=== PATIENT | female | born 1985 | race Hispanic/Latino ===

== ENCOUNTER 2020-05-14 16:20 | Emergency (ER) | payer SELFPAY ==
[2020-05-14 17:14] LABS: HCG,QUAL RESULT NEGATIVE (NEGATIVE)
[2020-05-14 17:17] LABS: AMPHET/METH SCREEN,URINE NEGATIVE (NEGATIVE); BARBITURATE SCREEN, URINE NEGATIVE (NEGATIVE); BENZODIAZEPINES SCREEN,URINE NEGATIVE (NEGATIVE); CANNABINOID SCREEN,URINE NEGATIVE (NEGATIVE); COCAINE SCREEN,URINE NEGATIVE (NEGATIVE); OPIATE SCREEN,URINE NEGATIVE (NEGATIVE); PHENCYCLIDINE SCREEN,URINE NEGATIVE (NEGATIVE)
[2020-05-14 17:31] LABS: BASOPHILS % (AUTO) 0.5 % (0.0-5.0); EOSINOPHILS % (AUTO) 2.1 % (0.0-8.0); HEMATOCRIT 42.5 % (36-48); MEAN CORPUSCULAR HEMOGLOBIN 28.5 pg (27.0-33.0); MEAN CORPUSCULAR HGB CONC 32.9 g/dL (32.0-36.0); MEAN CORPUSCULAR VOLUME 86.4 fL (79-99); MONOCYTES % (AUTO) 5.8 % (3.0-13.0); NEUTROPHILS % (AUTO) 59.2 % (40.0-77.0); PLATELET COUNT (AUTO) 278 K/uL (130-400); RED BLOOD CELL COUNT(AUTO) 4.92 MIL/uL (4.00-5.50); RED CELL DISTRIBUTION WIDTH 12.5 % (11.0-15.5); WHITE BLOOD COUNT (AUTO) 10.9 K/uL (4.8-10.8)
[2020-05-14 17:34] LABS: CREATININE 0.9 mg/dL (0.5-1.5); POTASSIUM 3.9 mmol/L (3.5-5.1)
[2020-05-14 17:39] LABS: ALBUMIN 3.5 g/dL (3.5-5.0); BILIRUBIN,TOTAL 0.2 mg/dL (0.2-1.0)
== END 2020-05-14 21:35 | disposition home or self-care (01) ==
LOC: EDH 16:20
DX: R00.2 Palpitations (principal); E01.0 Iodine-deficiency related diffuse (endemic) goiter; Z72.0 Tobacco use
CPT/HCPCS: 36415; 71045; 80053; 80305; 81025; 82550; 84443; 84484; 85025; 93005

== ENCOUNTER 2022-02-07 08:14 | Emergency (ER) | payer OTHER ==
[~2022-02-07] VITALS: Ht 162.6 cm; Wt 98.9 kg
[2022-02-07 08:32] LABS: BASOPHILS % (AUTO) 0.6 % (0.0-5.0); EOSINOPHILS % (AUTO) 2.4 % (0.0-8.0); HEMATOCRIT 41.4 % (36-48); LYMPHOCYTES % (AUTO) 45.7 % (21.0-51.0); MEAN CORPUSCULAR HEMOGLOBIN 29.5 pg (27.0-33.0); MEAN CORPUSCULAR HGB CONC 33.1 g/dL (32.0-36.0); MONOCYTES % (AUTO) 7.3 % (3.0-13.0); NEUTROPHILS % (AUTO) 43.8 % (40.0-77.0); PLATELET COUNT (AUTO) 228 K/uL (130-400); RED BLOOD CELL COUNT(AUTO) 4.65 MIL/uL (4.00-5.50); RED CELL DISTRIBUTION WIDTH 12.7 % (11.0-15.5); WHITE BLOOD COUNT (AUTO) 8.6 K/uL (4.8-10.8)
[2022-02-07 08:45] LABS: APPEARANCE,URINE CLEAR (CLEAR); BILIRUBIN,URINE NEGATIVE (NEGATIVE); COLOR,URINE LIGHT-YELLOW (YELLOW); GLUCOSE, URINE (UA) NEGATIVE (NEGATIVE); KETONES,URINE NEGATIVE (NEGATIVE); LEUKOCYTE ESTERASE ,URINE NEGATIVE Leu/uL (NEGATIVE); NITRATE,URINE NEGATIVE (NEGATIVE); OCCULT BLOOD,URINE NEGATIVE (NEGATIVE); PROTEIN,URINE NEGATIVE (NEGATIVE); UROBILINOGEN,URINE 0.2 mg/dL (0.2-1.0)
[2022-02-07 08:49] LABS: HCG,QUALITATIVE URINE NEGATIVE (NEGATIVE)
[2022-02-07 08:50] LABS: CREATININE 0.7 mg/dL (0.5-1.5); POTASSIUM 3.7 mmol/L (3.5-5.1)
[2022-02-07 08:54] LABS: ALBUMIN 3.5 g/dL (3.5-5.0); TOTAL PROTEIN, SERUM 7.5 g/dL (6.0-8.3)
[2022-02-07] MEDS ORDERED: ONDANSETRON 4MG INJ IVP ONE (09:00)
[2022-02-07] MEDS ORDERED: KETOROLAC 30MG VIAL (30MG/ML) IVP ONE (09:00)
[2022-02-07] MEDS ORDERED: IOHEXOL 350 MG/ML 100ML INFUS..BTL IV ONE (13:04)
[2022-02-07] MEDS ORDERED: L. A1CAP13 PO (14:27)
[2022-02-07] MEDS ORDERED: FAMO-136 PO (14:27)
[2022-02-07] MEDS ORDERED: DICY10 PO (14:27)
[2022-02-07] MEDS ORDERED: ONDA4TAB10 PO (14:27)
[2022-02-07 14:56] VITALS: BP 110/75
== END 2022-02-07 14:55 | disposition home or self-care (01) ==
LOC: EDH 08:14
DX: R10.9 Unspecified abdominal pain (principal); R11.2 Nausea with vomiting, unspecified; R07.89 Other chest pain; M25.511 Pain in right shoulder
CPT/HCPCS: 99285; 74177; 96374; 76705; 96375; 82150; 84443; 80053; 83690; 85025; 81003; 81025; 36415; J2405; J1885; Q9967

== ENCOUNTER 2022-07-21 18:35 | Emergency (ER) | payer OTHER ==
[~2022-07-21] VITALS: Ht 162.6 cm; Wt 6.2 kg
[~2022-07-21 18:35] MED LIST: DICY10 PO; FAMO-136 PO; L. A1CAP13 PO; ONDA4TAB10 PO
[2022-07-21 19:45] LABS: BASOPHILS % (AUTO) 0.4 % (0.0-5.0); EOSINOPHILS % (AUTO) 2.3 % (0.0-8.0); HEMATOCRIT 44.2 % (36-48); LYMPHOCYTES % (AUTO) 24.1 % (21.0-51.0); MEAN CORPUSCULAR HEMOGLOBIN 29.4 pg (27.0-33.0); MEAN CORPUSCULAR HGB CONC 32.8 g/dL (32.0-36.0); MEAN CORPUSCULAR VOLUME 89.5 fL (79-99); MONOCYTES % (AUTO) 8.7 % (3.0-13.0); NEUTROPHILS % (AUTO) 64.1 % (40.0-77.0); PLATELET COUNT (AUTO) 277 K/uL (130-400); RED BLOOD CELL COUNT(AUTO) 4.94 MIL/uL (4.00-5.50); RED CELL DISTRIBUTION WIDTH 12.4 % (11.0-15.5); WHITE BLOOD COUNT (AUTO) 10.8 K/uL (4.8-10.8)
[2022-07-21 19:53] LABS: CREATININE 0.8 mg/dL (0.5-1.5); POTASSIUM 3.7 mmol/L (3.5-5.1)
[2022-07-21 20:03] LABS: ALBUMIN 3.5 g/dL (3.5-5.0)
[2022-07-21 20:19] LABS: APPEARANCE,URINE CLEAR (CLEAR); BILIRUBIN,URINE NEGATIVE (NEGATIVE); COLOR,URINE LIGHT-YELLOW (YELLOW); GLUCOSE, URINE (UA) NEGATIVE (NEGATIVE); KETONES,URINE NEGATIVE (NEGATIVE); LEUKOCYTE ESTERASE ,URINE NEGATIVE Leu/uL (NEGATIVE); NITRATE,URINE NEGATIVE (NEGATIVE); PH,URINE 5.5 (5.0-8.0); PROTEIN,URINE NEGATIVE (NEGATIVE)
[2022-07-21 20:24] LABS: HCG,QUALITATIVE URINE NEGATIVE (NEGATIVE)
[2022-07-21 20:41] LABS: BACTERIA,URINE RARE /HPF (None Seen); MUCUS,URINE RARE LPF (None Seen); SQUAMOUS EPITHELIAL CELL,UR RARE /HPF (0-2); YEAST,URINE BUDDING RARE /HPF (None Seen)
[2022-07-21] MEDS ORDERED: ONDANSETRON 4MG INJ IVP ONE (21:00)
[2022-07-21] MEDS ORDERED: FAMOTIDINE 20MG VIAL IV ONE (21:00)
[2022-07-21] MEDS ORDERED: KETOROLAC 15MG/ML VIAL (15MG/ML) IV ONE (21:00)
[2022-07-21] MEDS: MORPHINE 2 MG SYG IVP ONE ×2 (21:00→22:52)
[2022-07-21] MEDS ORDERED: 0.9%NACL 1000ML 1,000 ML IV ONE (21:00)
[2022-07-21] MEDS ORDERED: NAPR500T6 PO (22:04)
[2022-07-21] MEDS ORDERED: OMEP20TA20 PO (22:04)
[2022-07-21] MEDS ORDERED: ONDA4TAB10 PO (22:04)
[2022-07-21 22:51] VITALS: BP 125/73
== END 2022-07-21 22:53 | disposition home or self-care (01) ==
LOC: EDH 18:35
DX: K82.4 Cholesterolosis of gallbladder (principal); R10.11 Right upper quadrant pain; E03.9 Hypothyroidism, unspecified; Z79.899 Other long term (current) drug therapy; Z98.890 Other specified postprocedural states
CPT/HCPCS: 99285; 96374; 76705; 71045; 96361; 96375; 84484; 80053; 85025; 81001; 81025; 36415; 93005; J3490; J7030; J2405; J1885

== ENCOUNTER 2023-09-19 19:51 | Emergency (ER) | payer OTHER ==
[~2023-09-19] VITALS: Ht 167.6 cm; Wt 99.8 kg
[~2023-09-19 19:51] MED LIST changes: +NAPR500T6 PO; +OMEP20TA20 PO
[2023-09-19] MEDS: NAPROXEN 500 MG TABLET PO ONE (20:02)
[2023-09-19 20:09] VITALS: BP 114/59; PULSE 67; RESP 16; O2SAT 98
[2023-09-19] MEDS ORDERED: NAPR375T6 PO (20:19)
== END 2023-09-19 20:34 | disposition home or self-care (01) ==
LOC: EDH 19:51
DX: K42.9 Umbilical hernia without obstruction or gangrene (principal); E03.9 Hypothyroidism, unspecified; Z79.899 Other long term (current) drug therapy
CPT/HCPCS: 76705

== ENCOUNTER 2024-02-17 15:27 | Emergency (ER) | payer BC ==
[~2024-02-17] VITALS: Ht 162.6 cm; Wt 99.8 kg
[~2024-02-17 15:27] MED LIST changes: +NAPR-1505 PO; +NAPR-1506 PO; -NAPR500T6 PO; +ONDA-243 PO; -ONDA4TAB10 PO
[2024-02-17 16:00] LABS: BASOPHILS # (AUTO) 0.04 K/uL (0.00-0.20); BASOPHILS % (AUTO) 0.4 % (0.0-5.0); EOSINOPHILS # (AUTO) 0.21 K/uL (0.00-0.70); EOSINOPHILS % (AUTO) 2.3 % (0.0-8.0); IMMATURE GRANULOCYTE ABSOLUTE 0.05 K/uL (0-1); LYMPHOCYTES # (AUTO) 2.8 K/uL (1.0-4.8); LYMPHOCYTES % (AUTO) 30.6 % (21.0-51.0); MEAN CORPUSCULAR HEMOGLOBIN 28.9 pg (27.0-33.0); MEAN CORPUSCULAR HGB CONC 32.6 g/dL (32.0-36.0); MEAN CORPUSCULAR VOLUME 88.6 fL (79-99); MONOCYTES # (AUTO) 0.5 K/uL (0.1-1.0); NEUTROPHILS # (AUTO) 5.4 K/uL (1.8-7.7); NEUTROPHILS % (AUTO) 60.1 % (40.0-77.0); PLATELET COUNT (AUTO) 231 K/uL (130-400); RED BLOOD CELL COUNT(AUTO) 4.74 MIL/uL (4.00-5.50); RED CELL DISTRIBUTION WIDTH 12.8 % (11.0-15.5)
[2024-02-17 16:09] LABS: APPEARANCE,URINE CLEAR (CLEAR); BILIRUBIN,URINE NEGATIVE (NEGATIVE); COLOR,URINE LIGHT-YELLOW (YELLOW); GLUCOSE, URINE (UA) NEGATIVE (NEGATIVE); KETONES,URINE NEGATIVE (NEGATIVE); LEUKOCYTE ESTERASE ,URINE NEGATIVE Leu/uL (NEGATIVE); NITRATE,URINE NEGATIVE (NEGATIVE); OCCULT BLOOD,URINE NEGATIVE (NEGATIVE); PH,URINE 5.5 (5.0-8.0); PROTEIN,URINE NEGATIVE (NEGATIVE); UROBILINOGEN,URINE 0.2 mg/dL (0.2-1.0)
[2024-02-17 16:15] LABS: ADD UA MICROSCOPIC YES
[2024-02-17 16:16] LABS: BACTERIA,URINE RARE /HPF (None Seen); MUCUS,URINE RARE LPF (None Seen); RBC,URINE 0-1 /HPF (0-1); SQUAMOUS EPITHELIAL CELL,UR RARE /HPF (0-2); WBC,URINE 0-1 /HPF (0-1)
[2024-02-17 16:16] LABS: CREATININE 0.7 mg/dL (0.5-1.0); POTASSIUM 3.3 mmol/L (3.5-5.1)
[2024-02-17 16:30] LABS: B-TYPE NATRIURETIC PEPTIDE 25 pg/mL (0-100)
[2024-02-17] MEDS: 0.9%NACL 1000ML 1,000 ML IV SCH (18:31)
[2024-02-17] MEDS: PoTASSium BIcarbonate/CIT AC 25 MEQ TABLET.EFF PO ONE (21:20)
[2024-02-17 21:26] VITALS: BP 122/71; PULSE 80; RESP 18; TEMP 98.2; O2SAT 99
== END 2024-02-17 21:36 | disposition home or self-care (01) ==
LOC: EDH 15:27
DX: F41.9 Anxiety disorder, unspecified (principal); E86.0 Dehydration; E87.6 Hypokalemia; Z79.899 Other long term (current) drug therapy; Z98.890 Other specified postprocedural states
CPT/HCPCS: 99284; 96360; 71045; 82550; 84484; 80048; 83880; 85025; 81001; 81025; 36415; 93005; J7030

== ENCOUNTER 2025-01-08 22:28 | Emergency (ER) | payer SELFPAY ==
[~2025-01-08] VITALS: Ht 167.6 cm; Wt 104.3 kg
[2025-01-08 22:49] LABS: IMMATURE GRANULOCYTE ABSOLUTE 0.06 K/uL (0-1); NUCLEATED RED BLOOD CELLS 0.0 % (0.0-0.19); PLATELET COUNT (AUTO) 247 K/uL (130-400); RED BLOOD CELL COUNT(AUTO) 4.61 MIL/uL (4.00-5.50); RED CELL DISTRIBUTION WIDTH 12.8 % (11.0-15.5); WHITE BLOOD COUNT (AUTO) 13.6 K/uL (4.8-10.8)
[2025-01-08 23:00] LABS: CREATININE 0.6 mg/dL (0.5-1.0); GLOMERULAR FILTR. RATE CALC 116.0 mL/min (>90); GLUCOSE,RANDOM 102.0 mg/dL (70-105); SODIUM SERUM 138.0 mmol/L (136-145); UREA NITROGEN, BLOOD 13.0 mg/dL (7-18)
[2025-01-08 23:05] LABS: CREATINE KINASE, TOTAL 56.0 U/L (21-232)
[2025-01-08 23:07] VITALS: TEMP 98.2
--- NOTE | 2025-01-08 23:36 | ERN ---
ED Note History of Present Illness Stated Complaint: HEADACHE, EPIGASTRIC / CP Chief Complaint: Multiple Complaints Time Seen by MD: 23:29 Dictation: This is a 39-year-old female who presented to the emergency room complaining of epigastric pain and lower chest pain with radiation to the left chest. She stated that it was a stabbing kind of pain associated with some nausea. She also reported a headache all this started about 2 hours prior to the presentation. Patient denied any blurred vision diplopia facial asymmetry dysarthria motor weakness or seizure activity. No fever chills. She does give a history of gallbladder problems in the past Temperature 97.1 pulse 84 respirations 18 blood pressure 132/82 with a pulse oximetry of 96% on room air Chronic medical problems include thyroid disease, hernia repair and gallbladder issues. Allergies: Coded Allergies: No Known Allergies (Unverified Allergy, Unknown, 02/07/22) Home Meds Active Scripts Naproxen (Naproxen) 375 Mg Tablet., 375 MG PO BID for 7 Days, #14 TAB Prov:EMMIE GAONA MD 09/19/23 Omeprazole (Omeprazole) 20 Mg Tablet., 20 MG PO DAILY, #30 TAB Prov:FITTINGFREDERICP 07/21/22 Ondansetron (Ondansetron Odt) 4 Mg Tab.rapdis, 4 MG PO TID, #10 TAB Prov:FITTINGFREDERICP 07/21/22 Naproxen (Naproxen) 500 Mg Tablet., 500 MG PO BIDPC, #14 TAB Prov:FITTINGFREDERICP 07/21/22 Ondansetron (Ondansetron Odt) 4 Mg Tab.rapdis, 4 MG PO TID PRN for NAUSEA, #15 TAB 0 Refills Prov:HANNAH FRANCISCO MD 02/07/22 L. Acidophilus/L. Rhamnosus (Probiotic 15 Billion Cell Cap) 1 Each Capsule, 1 EACH PO DAILY, #30 CAP 0 Refills Prov:HANNAH FRANCISCO MD 02/07/22 Famotidine (Pepcid) 20 Mg Tablet, 20 MG PO BID, #30 TAB 0 Refills Prov:HANNAH FRANCISCO MD 02/07/22 Dicyclomine HCl (Bentyl) 10 Mg Cap, 10 MG PO QID PRN for PAIN, #15 CAP 0 Refills Prov:HANNAH FRANCISCO MD 02/07/22 Past Medical History Past Medical History: No Pertinent History, Hyperthyroid Additional Past Medical Hx: THYROID Surgical History: Other Surgical History Other: HERNIA REPAIR 1998 Family History: Negative Social History: Smokers, ETOH LMP: Nov 28, 2024 RN Note Reviewed/Agreed w/PFSH: Yes Review of System Dictation Constitutional: Negative for fever,chills, and weight loss Eyes: Negative for injury, pain,redness, and discharge ENT: Negative for injury,pain or swelling Cardiovascular: Positive for chest pain, palpitations, and edema Respiratory: Negative for shortness of breath, cough, and wheezing, Abdomen/GI: Positive for epigastric abdominal pain, nausea, vomiting, diarrhea, and constipation Back: Negative for injury and pain : Negative for injury, bleeding and discharge MS/Extremity: Negative for injury and deformity Skin: Negative for rash, and discoloration Neuro: Negative for headache, weakness, numbness, tingling, and seizure Psych: Negative for suicide ideation, homicidal ideation, and hallucinations Initial Vital Sign VS Vital Signs Date Time Temp Pulse Resp B/P (MAP) Pulse Ox O2 Delivery O2 Flow Rate FiO2 01/08/25 22:30 97.2 84 18 132/82 96 Room Air 01/08/25 23:07 0 21 Physical Exam Dictation General: awake, alert, NAD morbidly obese female Head/Face: Normocephalic, atraumatic Eyes: PERRL, EOMI, vision at baseline ENT: oral cavity clear, TMs clear, no signs of infection Neck: Trachea midline, supple, no nuchal rigidity Cardiovascular: RRR, normal S1/S2, No MRGs, no JVD mild tenderness in the lower chest wall area Respiratory: CTAB, no respiratory distress, No rales or wheezes Abdomen: Soft, non-tender, non-distended, normal bowel sounds, no guarding or rebound. Skin: Warm, dry, normal turgor, no rash MS/Extremity: Pulses equal, no cyanosis, neurovascular intact, FROM Neuro: COAx4, GCS 15, strength 5/5, CN 2-12 intact, normal cerebellar exam, normal gait, Psych: Normal behavior, mood, and affect normal Extremities-trace edema without any palpable cords, Homans sign is negative Results (Laboratory/Radiology) Laboratory/Radiology Laboratory Tests Test 01/08/25 22:43 01/08/25 23:49 White Blood Count 13.6 K/uL (4.8-10.8) H Red Blood Count 4.61 MIL/uL (4.00-5.50) Hemoglobin 14.0 g/dL (12.0-16.0) Hematocrit 41.0 % (36-48) Mean Corpuscular Volume 88.9 fL (79-99) Mean Corpuscular Hemoglobin 30.4 pg (27.0-33.0) Mean Corpuscular Hemoglobin Concent 34.1 g/dL (32.0-36.0) Red Cell Distribution Width 12.8 % (11.0-15.5) Platelet Count 247 K/uL (130-400) Mean Platelet Volume 10.4 fL (7.5-10.5) Immature Granulocyte % (Auto) 0.4 % (0-1) Neutrophils (%) (Auto) 65.8 % (40.0-77.0) Lymphocytes (%) (Auto) 25.4 % (21.0-51.0) Monocytes (%) (Auto) 6.5 % (3.0-13.0) Eosinophils (%) (Auto) 1.5 % (0.0-8.0) Basophils (%) (Auto) 0.4 % (0.0-5.0) Neutrophils # (Auto) 9.0 K/uL (1.8-7.7) H Lymphocytes # (Auto) 3.5 K/uL (1.0-4.8) Monocytes # (Auto) 0.9 K/uL (0.1-1.0) Eosinophils # (Auto) 0.21 K/uL (0.00-0.70) Basophils # (Auto) 0.05 K/uL (0.00-0.20) Absolute Immature Granulocyte (auto 0.06 K/uL (0-1) Nucleated Red Blood Cells 0.0 % (0.0-0.19) Sodium Level 138 mmol/L (136-145) Potassium Level 3.5 mmol/L (3.5-5.1) Chloride Level 105 mmol/L (101-111) Carbon Dioxide Level 28 mmol/L (21-32) Blood Urea Nitrogen 13 mg/dL (7-18) Creatinine 0.6 mg/dL (0.5-1.0) Glomerular Filtration Rate Calc 116 mL/min (>90) Random Glucose 102 mg/dL (70-105) Total Calcium 8.6 mg/dL (8.5-10.1) Total Creatine Kinase 56 U/L (21-232) # Troponin I High Sensitivity < 4 ng/L (4-50) L Urine Color LIGHT-YELLOW (YELLOW) Urine Appearance CLEAR (CLEAR) Urine pH 8.0 (5.0-8.0) Urine Specific [place] 1.023 (1.001-1.031) Urine Protein NEGATIVE mg/dL (NEGATIVE) Urine Glucose (UA) NEGATIVE mg/dL (NEGATIVE) Urine Ketones NEGATIVE mg/dL (NEGATIVE) Urine Occult Blood NEGATIVE (NEGATIVE) Urine Nitrate NEGATIVE (NEGATIVE) Urine Bilirubin NEGATIVE mg/dL (NEGATIVE) Urine Urobilinogen 2.0 mg/dL (0.2-1.0) H Urine Leukocyte Esterase NEGATIVE Susan/uL Urine RBC 0-1 /HPF (0-1) Urine WBC 0-1 /HPF (0-1) Urine Squamous Epithelial Cells RARE /HPF (0-2) Urine Bacteria None /HPF (None Seen) Urine HCG, Qualitative NEGATIVE (NEGATIVE) Labs Reviewed?: Yes ED Course ED Course Orders Procedure Category Date Status Time Vital Signs Per CPOE 01/08/25 Transmitted Routine 22:30 Chest 1vw RAD 01/08/25 Resulted 22:30 12 Lead Ekg Tracing- EKG 01/08/25 Logged Technical 22:30 Oxygen By Nc/Pulse Ox CPOE 01/08/25 Transmitted 22:30 Maintain Iv CPOE 01/08/25 Transmitted 22:30 Iv Insertion CPOE 01/08/25 Transmitted 22:30 Cardiac Monitoring CPOE 01/08/25 Transmitted 22:30 Pulse Oximetry With CPOE 01/08/25 Transmitted Vs And Prn 22:30 Cbc With Differential LAB 01/08/25 Complete 22:30 Activity: Br W/Brp CPOE 01/08/25 Transmitted With Assist 22:30 Creatine Kinase, Total LAB 01/08/25 Complete 22:30 Troponin I High LAB 01/08/25 Complete Sensitivity 22:30 Urinalysis Profile LAB 01/08/25 Complete 22:30 Basic Metabolic Panel LAB 01/08/25 Complete 22:30 ,Urine Test LAB 01/08/25 Complete 22:31 Ketorolac PHA 01/09/25 Complete Tromethamine 30mg/Ml 00:30 Current Medications Medications (Trade) Dose Ordered Sig/Mickey Route PRN Reason Start Time Stop Time Status Last Admin Dose Admin Ketorolac Tromethamine (toRADol) 30 mg ONCE ONCE IM 01/09/25 00:30 01/09/25 00:31 DC 01/09/25 00:25 Vital Signs Date Time Temp Pulse Resp B/P (MAP) Pulse Ox O2 Delivery O2 Flow Rate FiO2 01/09/25 00:37 77 24 117/87 100 Room Air* 0 21 01/08/25 23:07 98.2 83 12 124/80 100 Room Air* 0 21 01/08/25 22:30 97.2 84 18 132/82 96 Room Air We will perform diagnostic labs, advanced imaging and administer medications according to the patient's complaint. Once the results are available, will review and personally interpreted the labs to rule out any acute life- threatening emergency the trach require immediate intervention and treatment. I will then re-evaluate the patient after treatment and diagnostic exams have return to determine whether the patient requires any further testing, can safely be discharged home or need further admission to hospital for additional treatment and evaluation. Labs reviewed CBC showed a white count of 13.6 hemoglobin 14 platelets 247. BNP 7 shows a potassium of 3.5 otherwise with a normal limits. Troponins are within normal limits Chest x-ray is unremarkable for any acute infiltrates. I updated the patient and her son on available information and my concerns of her headache perhaps being related to morbid obesity and obstructive sleep apnea syndrome Counseling on smoking cessation alcohol abstinence and lifestyle modifications with weight loss diet and exercise to improve overall health. Also recommended an outpatient sleep study to to be addressed with her primary care physician HEART Score Response (Comments) Value History: Low suspicion (0) 0 EKG: Normal 0 Age: < 45yrs (0) 0 Risk Factors: No known risk factors (0) 0 Initial Troponin: Normal limit (0) 0 HEART Score Risk: Low Risk for MACE (1-3) Total 0 Medical Decision Making MDM Differential diagnosis: Atypical chest pain, esophagitis, gastritis, biliary colic Rationale: Tests considered and ordered secondary to shared decision making include: Previous outside records reviewed: Old ER visits. Risk of complication and/or morbidity or mortality of patient management: None Medications-Per medication reconciliation Need for hospitalization: Patient does not meet criteria for hospitalization. Need for emergency major/minor surgery: No There are no social concerns with this patient. Prescription drug management Prescriptions will include symptomatic care Patient's prior external medical records from other ER visits were reviewed by me as indicated. Prior testing and results from previous visits were reviewed. Prior tests were taken into account with medical decision making and resource utilization, independent historian/historians were used to obtain complete medical history. I independently interpreted the test that were performed, results were reviewed by me and considered findings on radiology if ordered. Medical management and examination interpretation discussions were had by me with other qualified healthcare professionals as indicated for the patient's care. Problem List Problem List: (1) Headache (2) Nonspecific abdominal pain (3) Thyroid condition (4) Chest wall pain (5) Morbid obesity DX & DISP Disposition: Discharge Departure Impression: Primary Impression: Headache Additional Impressions: Chest wall pain, Morbid obesity, Thyroid condition Condition: Stable Scripts Ketorolac Tromethamine (Toradol) 10 Mg Tab 10 MG PO QID for pain for 5 Days, #20 TAB 0 Refills Prov: STANLEY CASPER MD 01/09/25 Additional Instructions: Patient and the caregiver have been informed of all the diagnostic tests and the imaging conducted during the today's visit to the emergency room and has verbalized understanding of the results I have personally reviewed and interp reted all diagnostic exams performed here in the ER today as well as the vital signs documented by the nursing staff. The patient is now being discharged to home and should follow up with the primary care physician or the specialist as directed by the ER staff. Follow-up with primary care provider in 1 to 2 days. Take medications as directed here in the emergency room. Okay to continue home medications unless otherwise discussed during your visit in the emergency room today. Return to your nearest emergency room if symptoms worsen or if there is no improvement. Call 911 if you need immediate assistance. Take Tylenol or Motrin [id number] as needed and if no contraindications are present. Increase oral hydration. A wound culture or urine culture was ordered here in the emergency room department please follow-up with primary care provider and advise them to get repeat ports from our facility. If you had any Sammy wrap/splints that were applied here, please do not remove them until you see your primary care or specialty. Referrals: SELF,REFERRAL (PCP) STANLEY CASPER MD Jan 08, 2025 23:35
--- NOTE | 2025-01-08 23:49 | NUR ---
UA COLLECTED AND SENT ORDERED
--- NOTE | 2025-01-08 23:51 | HMCIMG ---
EXAM: CR Chest, 1 view CLINICAL HISTORY: Chest pain. COMPARISON: Chest radiograph dated 02/17/2024. FINDINGS: The lungs show no infiltrates or other acute findings. No pleural effusion or pneumothorax. The cardiomediastinal silhouette is within normal limits. No acute osseous abnormality. IMPRESSION: No acute cardiopulmonary process is evident. No interval changes. /[place]
--- NOTE | 2025-01-08 23:52 | NUR ---
WARM BLANKET PROVIDED
[2025-01-08 23:58] LABS: APPEARANCE,URINE CLEAR (CLEAR); GLUCOSE, URINE (UA) NEGATIVE (NEGATIVE); LEUKOCYTE ESTERASE ,URINE NEGATIVE Leu/uL (NEGATIVE); NITRATE,URINE NEGATIVE (NEGATIVE); OCCULT BLOOD,URINE NEGATIVE (NEGATIVE)
[2025-01-09] LABS: ADD UA MICROSCOPIC YES
[2025-01-09 00:01] LABS: SQUAMOUS EPITHELIAL CELL,UR RARE /HPF (0-2)
[2025-01-09] MEDS ORDERED: KETO10 PO (01:40)
[2025-01-09 01:46] VITALS: BP 123/77; PULSE 76; RESP 25; O2SAT 100
--- NOTE | 2025-01-09 06:48 | EKG ---
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
== END 2025-01-09 01:52 | disposition home or self-care (01) ==
LOC: EDH 22:28
DX: R51.9 Headache, unspecified (principal); R07.89 Other chest pain; E66.01 Morbid (severe) obesity due to excess calories; E07.9 Disorder of thyroid, unspecified; F17.200 Nicotine dependence, unspecified, uncomplicated; Z68.37 Body mass index [BMI] 37.0-37.9, adult; Z98.890 Other specified postprocedural states
CPT/HCPCS: 99285; 71045; 82550; 84484; 80048; 85025; 81001; 81025; 36415; 93005; 96372; J1885

== ENCOUNTER 2025-04-06 17:33 | Emergency (ER) | payer OTHER ==
[~2025-04-06] VITALS: Ht 167.6 cm; Wt 104.3 kg
[~2025-04-06 17:33] MED LIST changes: +KETO10 PO
[2025-04-06 18:03] LABS: IMMATURE GRANULOCYTE ABSOLUTE 0.09 K/uL (0-1); NUCLEATED RED BLOOD CELLS 0.0 % (0.0-0.19); PLATELET COUNT (AUTO) 263 K/uL (130-400); RED BLOOD CELL COUNT(AUTO) 4.56 MIL/uL (4.00-5.50); RED CELL DISTRIBUTION WIDTH 12.7 % (11.0-15.5); WHITE BLOOD COUNT (AUTO) 12.8 K/uL (4.8-10.8)
[2025-04-06 18:04] VITALS: TEMP 98.6
--- NOTE | 2025-04-06 18:05 | EKG ---
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
[2025-04-06 18:13] LABS: CREATININE 0.7 mg/dL (0.5-1.0); GLOMERULAR FILTR. RATE CALC 112.0 mL/min (>90); GLUCOSE,RANDOM 107.0 mg/dL (70-105); SODIUM SERUM 137.0 mmol/L (136-145); UREA NITROGEN, BLOOD 11.0 mg/dL (7-18)
--- NOTE | 2025-04-06 18:16 | ERN ---
ED Note History of Present Illness Stated Complaint: SOB Chief Complaint: Shortness of Breath Time Seen by MD: 17:34 Time Seen by Midlevel: 17:34 Dictation: The patient is a 39-year-old female with a history of thyroid issues who presents to the emergency department with complaints of shortness of breath for a week and a half. Patient does not know if she suffers from hyper or hypothyroidism, she is not currently on any medications. She reports she went to her PCP yesterday and told her it might due to her thyroid and ran some labs but did not get any results. She denies any chest pain, cough, upper respiratory symptoms, sore throat, recent travel. Allergies: Coded Allergies: No Known Allergies (Unverified Allergy, Unknown, 02/07/22) Home Meds Active Scripts Ketorolac Tromethamine (Toradol) 10 Mg Tab, 10 MG PO QID for pain for 5 Days, #20 TAB 0 Refills Prov:STANLEY CASPER MD 01/09/25 Naproxen (Naproxen) 375 Mg Tablet., 375 MG PO BID for 7 Days, #14 TAB Prov:EMMIE GAONA MD 09/19/23 Omeprazole (Omeprazole) 20 Mg Tablet., 20 MG PO DAILY, #30 TAB Prov:FREDERIC RODRIGUEZ 07/21/22 Ondansetron (Ondansetron Odt) 4 Mg Tab.rapdis, 4 MG PO TID, #10 TAB Prov:FREDERIC RODRIGUEZ 07/21/22 Naproxen (Naproxen) 500 Mg Tablet., 500 MG PO BIDPC, #14 TAB Prov:FREDERIC RODRIGUEZ 07/21/22 Ondansetron (Ondansetron Odt) 4 Mg Tab.rapdis, 4 MG PO TID PRN for NAUSEA, #15 TAB 0 Refills Prov:HANNAH FRANCISCO MD 02/07/22 L. Acidophilus/L. Rhamnosus (Probiotic 15 Billion Cell Cap) 1 Each Capsule, 1 EACH PO DAILY, #30 CAP 0 Refills Prov:HANNAH FRANCISCO MD 02/07/22 Famotidine (Pepcid) 20 Mg Tablet, 20 MG PO BID, #30 TAB 0 Refills Prov:HANNAH FRANCISCO MD 02/07/22 Dicyclomine HCl (Bentyl) 10 Mg Cap, 10 MG PO QID PRN for PAIN, #15 CAP 0 Refills Prov:HANNAH FRANCISCO MD 02/07/22 Past Medical History Past Medical History: Hyperthyroid, Other Additional Past Medical Hx: THYROID Surgical History: Other Surgical History Other: HERNIA REPAIR 1998 Family History: Negative Social History: Smokers, ETOH LMP: Jan 04, 2025 RN Note Reviewed/Agreed w/PFSH: Yes Review of System Dictation Constitutional: Negative for fever,chills, and weight loss Eyes: Negative for injury, pain,redness, and discharge ENT: Negative for injury,pain or swelling Cardiovascular: Negative for chest pain, palpitations, and edema Respiratory: Negative for cough, and wheezing, positive for shortness of breath Abdomen/GI: Negative for abdominal pain, nausea, vomiting, diarrhea, and constipation Back: Negative for injury and pain : Negative for injury, bleeding and discharge MS/Extremity: Negative for injury and deformity Skin: Negative for rash, and discoloration Neuro: Negative for headache, weakness, numbness, tingling, and seizure Psych: Negative for suicide ideation, homicidal ideation, and hallucinations Initial Vital Sign VS Vital Signs Date Time Temp Pulse Resp B/P (MAP) Pulse Ox O2 Delivery O2 Flow Rate FiO2 04/06/25 17:34 98.6 75 16 133/81 100 Room Air 0 04/06/25 18:04 21 Physical Exam Dictation Vital Signs reviewed General Appearance: Alert, oriented x 3, no acute distress, well developed, nourished. Head and Face: non-traumatic. Eyes: PERRL, pink conjunctivas, eyelid no trauma, anterior chamber with arcus senilis. Ears: Pinnas intact and no signs of trauma or erythema ear canals clear and no discharge TM no erythema Nose: No discharge, no bleeding. Oropharynx: Mouth normal, tongue pink. pharynx clear,no erythema, tonsils no exudates, no abscesses noted, mucous membrane moist Neck: Supple, non-tender, no thyromegaly, no masses, no JVD, no bruits Breast:Deferred Chest:No tenderness, no crepitus, no paradoxical movement, no retractions Lungs:Clear, well-ventilated, symmetric, no rales, no wheezing, no rhonchi, no stridor, good breath sounds bilaterally Heart: Regular rate, regular rhythm, no murmur, no gallops Vascular: no peripheral edema, Abdomen: Soft, positive bowel sounds, nondistended, no guarding, nontender, no rebound, no masses no hepatomegaly, no splenomegaly, no Wilson's sign, no hernias. Rectal: Deferred Genital: Deferred Neurological: Normal speech, motor function intact, sensory function intact Musculoskeletal: Neck nontender, full range of motion, back nontender, full range of motion, Extremities: nontender, full range of motion Skin: Color pink, dry, no turgor, no rash, no lacerations, no abrasions, no contusions. Lymphatic: Deferred Results (Laboratory/Radiology) Laboratory/Radiology Laboratory Tests Test 04/06/25 17:54 White Blood Count 12.8 K/uL (4.8-10.8) H Red Blood Count 4.56 MIL/uL (4.00-5.50) Hemoglobin 13.8 g/dL (12.0-16.0) Hematocrit 40.9 % (36-48) Mean Corpuscular Volume 89.7 fL (79-99) Mean Corpuscular Hemoglobin 30.3 pg (27.0-33.0) Mean Corpuscular Hemoglobin Concent 33.7 g/dL (32.0-36.0) Red Cell Distribution Width 12.7 % (11.0-15.5) Platelet Count 263 K/uL (130-400) Mean Platelet Volume 10.6 fL (7.5-10.5) H Immature Granulocyte % (Auto) 0.7 % (0-1) Neutrophils (%) (Auto) 67.1 % (40.0-77.0) Lymphocytes (%) (Auto) 24.1 % (21.0-51.0) Monocytes (%) (Auto) 5.5 % (3.0-13.0) Eosinophils (%) (Auto) 2.2 % (0.0-8.0) Basophils (%) (Auto) 0.4 % (0.0-5.0) Neutrophils # (Auto) 8.6 K/uL (1.8-7.7) H Lymphocytes # (Auto) 3.1 K/uL (1.0-4.8) Monocytes # (Auto) 0.7 K/uL (0.1-1.0) Eosinophils # (Auto) 0.28 K/uL (0.00-0.70) Basophils # (Auto) 0.05 K/uL (0.00-0.20) Absolute Immature Granulocyte (auto 0.09 K/uL (0-1) Nucleated Red Blood Cells 0.0 % (0.0-0.19) Sodium Level 137 mmol/L (136-145) Potassium Level 3.8 mmol/L (3.5-5.1) Chloride Level 105 mmol/L (101-111) Carbon Dioxide Level 24 mmol/L (21-32) Blood Urea Nitrogen 11 mg/dL (7-18) Creatinine 0.7 mg/dL (0.5-1.0) Glomerular Filtration Rate Calc 112 mL/min (>90) Random Glucose 107 mg/dL (70-105) H Total Calcium 8.5 mg/dL (8.5-10.1) Magnesium Level 1.90 mg/dL (1.80-2.40) Troponin I High Sensitivity 5 ng/L (4-50) Thyroid Stimulating Hormone (TSH) 2.01 uIU/mL (0.36-3.74) # Serum Test, Qualitative NEGATIVE (NEGATIVE) REASON: swellling ORDERING PHYSICIAN: LISA MARTINES PROCEDURE: THYROID - US THYROID/NECK EXAMINATION: ULTRASOUND OF THE THYROID. CLINICAL HISTORY: Swelling. COMPARISON: None. TECHNIQUE: Transverse and longitudinal images were obtained through both lobes and the isthmus of the thyroid. FINDINGS: The right thyroid gland is normal in caliber with a with homogenous tissue echotexture. The left thyroid gland is bulky in caliber with heterogenous tissue echotexture. The right thyroid lobe measures 4.1 x 1.6 x 1.8 cm and the left thyroid lobe measures 8.8 x 6.1 x 5.5 cm in the craniocaudal, AP, and transverse dimensions respectively. The isthmus measures 0.45 cm in AP dimension. Right lobe: There is a hypoechoic solid nodule that measures 1.2 x 1.2 x 1.3 cm at the mid pole (TR4). Left lobe: There is a heterogenous solid nodule that measures 7.9 x 5.5 x 5.9 cm almost occupying the entire lobe (TR4). Isthmus: There is a hypoechoic solid nodule that measures 0.4 x 0.4 cm (TR4). No significantly enlarged lymph nodes. IMPRESSION: Bulky left lobe of the thyroid. Nodules in both lobes and isthmus of the thyroid. TI-RADS follow up recommendations: TR1: no FNA required TR2: no FNA required TR3: more than or equal to 1.5 cm follow up, more than or equal to 2.5 cm FNA follow up: 1, 3 and 5 years TR4: more than or equal to 1.0 cm follow up, more than or equal to 1.5 cm FNA follow up: 1, 2, 3 and 5 years TR5: more than or equal to 0.5 cm follow up, more than or equal to 1.0 cm FNA annual follow up for up to 5 years /[place] REASON: sob ORDERING PHYSICIAN: LISA MARTINES [employer] MANAGER PROCEDURE: CXR1VW - CHEST 1VW EXAM: CR Chest, 1 View. CLINICAL HISTORY: sob COMPARISON: 01/08 22:39 EDT CR - CHEST 1VW FINDINGS: LUNGS: The lungs show no infiltrate or other acute finding. PLEURAL SPACES: No pleural effusion or pneumothorax. MEDIASTINUM: Cardiac size and mediastinal contours within normal limits. BONES: No aggressive appearing osseous lesion seen. IMPRESSION: No acute cardiopulmonary pathology is evident. /[place] Labs Reviewed?: Yes EKG: (+) rhythm (Sinus rhythm) EKG Comment: Date:04/06/2025 Time:1759 Ventricular rate:78 TN interval:158 QRS duration:73 QT/QTc:369/421 EKG interpretation: Sinus rhythm Reviewed by ED Attending no STEMI ED Course ED Course Orders Procedure Category Date Status Time Thyroid Stimulating LAB 04/06/25 Complete Hormone 17:49 Cbc With Differential LAB 04/06/25 Complete 17:49 Chest 1vw RAD 04/06/25 Resulted 17:49 12 Lead Ekg Tracing- EKG 04/06/25 Complete Technical 17:49 Magnesium LAB 04/06/25 Complete 17:49 Troponin I High LAB 04/06/25 Complete Sensitivity 17:49 Basic Metabolic Panel LAB 04/06/25 Complete 17:49 Us Thyroid/Neck US 04/06/25 Resulted 17:49 Testing, LAB 04/06/25 Complete Serum Hcg 17:53 Acetaminophen 500mg PHA 04/06/25 In Process Tab (Tylenol 500mg T 19:30 Current Medications Medications (Trade) Dose Ordered Sig/Mickey Route PRN Reason Start Time Stop Time Status Last Admin Dose Admin Acetaminophen (TYLenol 500MG TAB) 1,000 mg ONCE ONCE PO 04/06/25 19:30 04/06/25 19:31 Vital Signs Date Time Temp Pulse Resp B/P (MAP) Pulse Ox O2 Delivery O2 Flow Rate FiO2 04/06/25 18:04 98.6 72 16 128/74 100 Room Air* 0 21 04/06/25 17:34 98.6 75 16 133/81 100 Room Air 0 Medical Decision Making MDM The patient is a 39-year-old female with a history of thyroid issues who presents to the emergency department with complaints of shortness of breath for a week and a half. Patient does not know if she suffers from hyper or hypot hyroidism, she is not currently on any medications. She reports she went to her PCP yesterday and told her it might due to her thyroid and ran some labs but did not get any results. She denies any chest pain, cough, upper respiratory symptoms, sore throat, recent travel. CBC showed mild leukocytosis, no anemia, chemistry showed no electrolyte negative troponin, TSH of 2.01. Ultrasound revealed bulking left thyroid with nodules. Chest x-ray showed no acute pathology Perc score for PE 0. On physical exam patient is in no acute distress, nontoxic appearance, nonlabored respirations, clear lung sounds. Airways intact. There is no drooling or trouble swallowing. Patient's vital signs are stable. Oxygen saturation is above 95. Patient will be discharged to follow up with PCP for further workup as outpatient. Differential diagnosis: Pneumonia, ACS, hyperthyroidism, neck mass, p neumothorax Need for hospitalization: Patient does not meet criteria for hospitalization. There are no social concerns with this patient. DX & DISP Disposition: Discharge Departure Impression: Primary Impression: Shortness of breath Additional Impression: Multiple thyroid nodules Condition: Stable Additional Instructions: Your labs were unremarkable. Your chest x-ray was normal. Your ultrasound showed some nodules in your thyroid which need to be follow up a by your primary doctor and possibly ENT. They might need to biopsy the nodules. Follow up with your primary doctor in 1-2 days. If anything worsens please return to ER. FOLLOW-UP WITH PRIMARY CARE PROVIDER IN 1 TO 2 DAYS. TAKE MEDICATIONS DIRECTED HERE IN THE EMERGENCY ROOM. OKAY TO CONTINUE HOME MEDICATIONS UNLESS OTHERWISE DISCUSSED DURING YOUR VISIT IN THE EMERGENCY ROOM TODAY. RETURN TO YOUR NEAREST EMERGENCY ROOM IF SYMPTOMS WORSEN OR IF THERE IS NO IMPROVEMENT. CALL 911 IF YOU NEED IMMEDIATE ASSISTANCE. TAKE TYLENOL [id number] NEEDED AND IF NO CONTRAINDICATIONS ARE PRESENT. INCREASE ORAL HYDRATION. A WOUND CULTURE OR URINE CULTURE WAS ORDERED HERE IN THE EMERGENCY ROOM DEPARTMENT PLEASE FOLLOW-UP WITH PRIMARY CARE PROVIDER AND ADVISE THEM TO GET REPEAT PORTS FROM OUR FACILITY. IF YOU HAD ANY CHUCKIE WRAP/SPLINTS THAT WERE APPLIED HERE, PLEASE DO NOT REMOVE THEM UNTIL YOU SEE YOUR PRIMARY CARE OR SPECIALTY. Referrals: SELF,REFERRAL (PCP) Time of Disposition: 19:29 I have reviewed the case, and I agree with, Diagnosis and Plan LISA MARTINES [employer] MANAGER Apr 06, 2025 18:16
--- NOTE | 2025-04-06 19:04 | HMCIMG ---
EXAMINATION: ULTRASOUND OF THE THYROID. CLINICAL HISTORY: Swelling. COMPARISON: None. TECHNIQUE: Transverse and longitudinal images were obtained through both lobes and the isthmus of the thyroid. FINDINGS: The right thyroid gland is normal in caliber with a with homogenous tissue echotexture. The left thyroid gland is bulky in caliber with heterogenous tissue echotexture. The right thyroid lobe measures 4.1 x 1.6 x 1.8 cm and the left thyroid lobe measures 8.8 x 6.1 x 5.5 cm in the craniocaudal, AP, and transverse dimensions respectively. The isthmus measures 0.45 cm in AP dimension. Right lobe: There is a hypoechoic solid nodule that measures 1.2 x 1.2 x 1.3 cm at the mid pole (TR4). Left lobe: There is a heterogenous solid nodule that measures 7.9 x 5.5 x 5.9 cm almost occupying the entire lobe (TR4). Isthmus: There is a hypoechoic solid nodule that measures 0.4 x 0.4 cm (TR4). No significantly enlarged lymph nodes. IMPRESSION: Bulky left lobe of the thyroid. Nodules in both lobes and isthmus of the thyroid. TI-RADS follow up recommendations: TR1: no FNA required TR2: no FNA required TR3: more than or equal to 1.5 cm follow up, more than or equal to 2.5 cm FNA follow up: 1, 3 and 5 years TR4: more than or equal to 1.0 cm follow up, more than or equal to 1.5 cm FNA follow up: 1, 2, 3 and 5 years TR5: more than or equal to 0.5 cm follow up, more than or equal to 1.0 cm FNA annual follow up for up to 5 years /[place]
--- NOTE | 2025-04-06 19:22 | HMCIMG ---
EXAM: CR Chest, 1 View. CLINICAL HISTORY: sob COMPARISON: 01/08 22:39 EDT CR - CHEST 1VW FINDINGS: LUNGS: The lungs show no infiltrate or other acute finding. PLEURAL SPACES: No pleural effusion or pneumothorax. MEDIASTINUM: Cardiac size and mediastinal contours within normal limits. BONES: No aggressive appearing osseous lesion seen. IMPRESSION: No acute cardiopulmonary pathology is evident. /[place]
[2025-04-06 19:31] VITALS: BP 119/70; PULSE 81; RESP 16; O2SAT 97
== END 2025-04-06 19:46 | disposition home or self-care (01) ==
LOC: EDH 17:33
DX: R06.02 Shortness of breath (principal); E04.2 Nontoxic multinodular goiter; F17.200 Nicotine dependence, unspecified, uncomplicated; Z79.899 Other long term (current) drug therapy; Z98.890 Other specified postprocedural states
CPT/HCPCS: 36415; 71045; 76536; 80048; 83735; 84443; 84484; 84703; 85025; 93005; 99285